=== PATIENT | male | born 1970 | race Two or more races ===

== ENCOUNTER 2022-06-19 12:59 | Emergency (ER) | payer BC ==
[~2022-06-19] VITALS: Ht 177.8 cm; Wt 102.3 kg
[2022-06-19] MEDS ORDERED: BACLOFEN 10 MG TABLET PO ONE (14:15)
[2022-06-19] MEDS ORDERED: LIDOCAINE 5% TRANSDERMAL PATCH TD ONE (14:15)
[2022-06-19 14:26] LABS: BASOPHILS % (AUTO) 0.7 % (0.0-2.0); HEMATOCRIT 44.3 % (41-53); HEMOGLOBIN 15.1 g/dL (13.5-17.5); LYMPHOCYTES # (AUTO) 2.4 K/uL (1.0-4.8); LYMPHOCYTES % (AUTO) 36.2 % (22.0-44.0); MEAN CORPUSCULAR HGB CONC 34.1 G/dL (31.0-37.0); MEAN CORPUSCULAR VOLUME 91 fL (80-100); MONOCYTES # (AUTO) 0.6 K/uL (0.1-1.0); MONOCYTES % (AUTO) 9.1 % (2.0-9.0); NEUTROPHILS # (AUTO) 3.5 K/uL (1.8-7.7); PLATELET COUNT (AUTO) 256 K/uL (150-450); RED BLOOD CELL COUNT(AUTO) 4.88 MIL/uL (4.50-5.90); RED CELL DISTRIBUTION WIDTH 13.6 % (11.5-14.5)
[2022-06-19 14:34] LABS: ANION GAP 10 mmol/L (8-16); CARBON DIOXIDE 26 mmol/L (22-29); CHLORIDE 101 mmol/L (98-107); CREATININE 1.18 mg/dL (0.60-1.30); GLOMERULAR FILTR. RATE CALC > 60 mL/min (>60); GLUCOSE,RANDOM 101 mg/dL (70-110); POTASSIUM 3.9 mmol/L (3.5-5.1); SODIUM SERUM 137 mmol/L (136-145); UREA NITROGEN, BLOOD 17 mg/dL (7-18)
[2022-06-19 14:40] LABS: ALANINE AMINOTRANSFERASE 35 U/L (12-78); ALBUMIN 4.1 g/dL (3.4-5.0); ALKALINE PHOSPHATASE 79 U/L (46-116); ASPARTATE AMINOTRANSFERASE 23 U/L (15-37); BILIRUBIN,TOTAL 0.5 mg/dL (0.1-1.0); TOTAL PROTEIN, SERUM 7.6 g/dL (6.4-8.2)
[2022-06-19] MEDS ORDERED: LIDO700A15 TP (15:30)
[2022-06-19] MEDS ORDERED: BACL10TA PO (15:31)
[2022-06-19 15:55] VITALS: BP 143/89
== END 2022-06-19 17:03 | disposition home or self-care (01) ==
LOC: EMS 13:02
DX: M54.50 Low back pain, unspecified (principal); Z98.890 Other specified postprocedural states; Z88.2 Allergy status to sulfonamides; Z88.5 Allergy status to narcotic agent; Z91.018 Allergy to other foods
CPT/HCPCS: 71045; 80053; 84484; 85025; 93005; 99285; 36415-L1; 36415-TC

== ENCOUNTER 2024-04-22 23:04 | Emergency (ER) | payer BC ==
[~2024-04-22] VITALS: Ht 175.3 cm; Wt 109.1 kg
[~2024-04-22 23:04] MED LIST: BACL10TA PO; LIDO700A15 TP
[2024-04-22 23:15] VITALS: BP 142/87; PULSE 104; RESP 20; TEMP 98; O2SAT 97
[2024-04-22] MEDS: ACETAMINOPHEN 325 MG TABLET PO ONE (23:57)
[2024-04-22] MEDS: PERTUSS(ACELL),DIPH,TET/PF 0.5 ML SYRINGE [ADULT] IM. ONE (23:57)
== END 2024-04-23 02:10 | disposition home or self-care (01) ==
LOC: EMS 23:05
DX: S40.021A Contusion of right upper arm, initial encounter (principal); S80.212A Abrasion, left knee, initial encounter; S80.211A Abrasion, right knee, initial encounter; Z88.2 Allergy status to sulfonamides; Z88.6 Allergy status to analgesic agent; W19.XXXA Unspecified fall, initial encounter; Y93.89 Activity, other specified; Y92.89 Other specified places as the place of occurrence of the external cause; Y99.8 Other external cause status
CPT/HCPCS: 29105; 90471; 90715; 99284; 99285